=== PATIENT | male | born 1935 | race Caucasian/White ===

== ENCOUNTER 2017-12-21 18:10 | Emergency (ER) | payer MEDICARE ==
[2017-12-21] MEDS: MORPHINE 2 MG/ML 1ML SYRINGE (J2270) IV (18:53)
[2017-12-21] MEDS: ONDANSETRON 4MG/2ML VIAL (J2405) IV (18:54)
[2017-12-21] MEDS: NS 500 ML IV (19:34)
[2017-12-21 19:41] LABS: BASO % 0.4 % (0.0-1.0); EOS # 0.1 10^3/uL (0.0-0.50); EOS % 0.8 % (0.0-3.0); HEMATOCRIT 45.4 % (42.0-52.0); HEMOGLOBIN 15.1 g/dl (13.5-17.5); IMMATURE GRANULOCYTE % 0.4 % (0-3.0); LYMPH # 0.5 10^3/uL (1.5-4.5); LYMPH % 4.5 % (24.0-44.0); MEAN CORPUSCULAR HEMOGLOBIN 28.5 pg (27.0-33.0); MEAN CORPUSCULAR HGB CONC 33.3 g/dl (32.0-36.5); MEAN CORPUSCULAR VOLUME 85.8 fl (80.0-96.0); MONO # 0.8 10^3/uL (0.0-0.8); MONO % 6.7 % (0.0-5.0); NEUTROPHILS # 9.7 10^3/uL (1.8-7.7); NEUTROPHILS % 87.2 % (36.0-66.0); PLATELET COUNT, AUTOMATED 195 10^3/uL (150-450); RED BLOOD COUNT 5.29 10^6/uL (4.30-6.10); RED CELL DISTRIBUTION WIDTH 13.7 % (11.5-14.5); WHITE BLOOD COUNT 11.2 10^3/uL (4.0-10.0)
[2017-12-21 19:54] LABS: INR 1.07; PROTHROMBIN TIME 14.1 SECONDS (12.1-14.4)
[2017-12-21 19:55] LABS: PARTIAL THROMBOPLASTIN TIME 25.5 SECONDS (25.4-37.6)
[2017-12-21 20:04] LABS: ANION GAP 8 MEQ/L (8-16); BLOOD UREA NITROGEN 22 MG/DL (7-18); CALCIUM LEVEL 9.3 MG/DL (8.8-10.2); CARBON DIOXIDE LEVEL 26 MEQ/L (21-32); CHLORIDE LEVEL 107 MEQ/L (98-107); CREATININE FOR GFR 1.33 MG/DL (0.70-1.30); GLOMERULAR FILTRATION RATE 55.1 (>35); GLUCOSE, FASTING 105 MG/DL (70-100); POTASSIUM SERUM 4.3 MEQ/L (3.5-5.1); SODIUM LEVEL 141 MEQ/L (136-145)
[2017-12-21] MEDS ORDERED: ISOVUE-370 76% 100ML VIAL (Q9967) As Ordered (20:06)
== END 2017-12-21 22:07 | disposition home or self-care (01) ==
LOC: M ED 18:10
DX: S43.102A Unspecified dislocation of left acromioclavicular joint, initial encounter (principal); S80.02XA Contusion of left knee, initial encounter; S20.212A Contusion of left front wall of thorax, initial encounter; V18.9XXA Unspecified pedal cyclist injured in noncollision transport accident in traffic accident, initial encounter; Y92.410 Unspecified street and highway as the place of occurrence of the external cause; Y93.9 Activity, unspecified; Y99.9 Unspecified external cause status; K44.9 Diaphragmatic hernia without obstruction or gangrene; M47.814 Spondylosis without myelopathy or radiculopathy, thoracic region; M11.232 Other chondrocalcinosis, left wrist; M11.262 Other chondrocalcinosis, left knee; M65.262 Calcific tendinitis, left lower leg
CPT/HCPCS: J2405